=== PATIENT | female | born 1985 | race Caucasian/White ===

== ENCOUNTER 2016-06-15 18:15 | Emergency (ER) | payer OTHER | END 2016-06-15 19:40 | disposition home or self-care (01) | LOC: ER1 18:15 | DX: L02.01 Cutaneous abscess of face (principal); L03.211 Cellulitis of face; I10 Essential (primary) hypertension; Z90.49 Acquired absence of other specified parts of digestive tract; F17.210 Nicotine dependence, cigarettes, uncomplicated; Z88.2 Allergy status to sulfonamides; Z79.899 Other long term (current) drug therapy | CPT/HCPCS: 99282 ==

== ENCOUNTER 2016-07-02 18:02 | Inpatient (IN) | payer OTHER ==
[~2016-07-02] VITALS: Ht 167.6 cm; Wt 95.3 kg
[2016-07-02 20:03] LABS: HEMOGLOBIN 13.3 gm/dl (12.3-15.3); RED BLOOD COUNT 4.83 M/UL (4.00-5.10); WHITE BLOOD COUNT 15.3 K/UL (4.5-11.0)
[2016-07-02 20:23] LABS: BUN/CREATININE RATIO 9 (0-10)
[2016-07-03 06:40] LABS: HEMOGLOBIN 12.3 gm/dl (12.3-15.3); RED BLOOD COUNT 4.49 M/UL (4.00-5.10)
[2016-07-03 07:00] LABS: BUN/CREATININE RATIO 13 (0-10)
[2016-07-04 05:46] LABS: RED BLOOD COUNT 3.57 M/UL (4.00-5.10); WHITE BLOOD COUNT 7.9 K/UL (4.5-11.0)
[2016-07-04 05:47] LABS: HEMOGLOBIN 9.9 gm/dl (12.3-15.3)
[2016-07-04 05:58] LABS: BUN/CREATININE RATIO 22 (0-10)
[2016-07-04 19:03] LABS: BUN/CREATININE RATIO 19 (0-10)
[2016-07-05 07:15] LABS: BUN/CREATININE RATIO 17 (0-10)
[2016-07-05 07:55] LABS: HEMOGLOBIN 9.2 gm/dl (12.3-15.3); RED BLOOD COUNT 3.33 M/UL (4.00-5.10); WHITE BLOOD COUNT 7.6 K/UL (4.5-11.0)
[2016-07-06] MEDS ORDERED: FLAGYL500 MG PO (14:31)
[2016-07-06] MEDS ORDERED: PROTONIX20 MG PO (14:31)
== END 2016-07-06 17:21 | disposition home or self-care (01) | DRG 389 ==
LOC: ER1 18:02 → ZEROF 07-03 01:30 → M/S 07-03 01:30
PROVIDERS: Family Medicine; Internal Medicine; Physician Assistant Medical; ADMIT Internal Medicine
DX: K56.60 Unspecified intestinal obstruction (principal); Q43.1 Hirschsprung's disease; F15.20 Other stimulant dependence, uncomplicated; K52.89 Other specified noninfective gastroenteritis and colitis; B19.20 Unspecified viral hepatitis C without hepatic coma; Z85.41 Personal history of malignant neoplasm of cervix uteri; G89.29 Other chronic pain; Z90.49 Acquired absence of other specified parts of digestive tract; Z88.1 Allergy status to other antibiotic agents; Z88.2 Allergy status to sulfonamides; Z79.899 Other long term (current) drug therapy; F17.210 Nicotine dependence, cigarettes, uncomplicated; N83.202 Unspecified ovarian cyst, left side; K56.7 Ileus, unspecified; A59.09 Other urogenital trichomoniasis; R11.2 Nausea with vomiting, unspecified; R10.9 Unspecified abdominal pain; F41.9 Anxiety disorder, unspecified; D64.9 Anemia, unspecified; E16.2 Hypoglycemia, unspecified
CPT/HCPCS: 36415; 74000; 74250; 80048; 80053; 81001; 82150; 83690; 83735; 84703; 85025; 85027; 96361; 96374; 96375; 96376; 99285; C9113; J1650; J1885; J1956; J2270; J2405; J2550; J2765; J2920; J7030; J7050; Q9962